=== PATIENT | male | born 1940 | race Caucasian/White ===

== ENCOUNTER → 2019-10-03 | Outpatient (CLI) | payer MEDICARE ==
[~2019-10-03] MED LIST: GADOTERATE 10 MMOL/20 ML SYR ONE
== END | disposition home or self-care (01) ==
LOC: RAD 16:54
PROVIDERS: ATTEND Psychiatry & Neurology Neurology
DX: I67.82 Cerebral ischemia (principal); I63.9 Cerebral infarction, unspecified; G31.89 Other specified degenerative diseases of nervous system; G93.89 Other specified disorders of brain
CPT/HCPCS: 70553; A9575

== ENCOUNTER 2019-11-08 14:35 | Emergency (ER) | payer MEDICARE ==
[~2019-11-08] VITALS: Ht 182.9 cm; Wt 82.4 kg
[2019-11-08 14:48] VITALS: BP 154/72
--- NOTE | 2019-11-08 15:06 | NUR ---
PT C/O SORE THROAT STARTING YESTERDAY AND FELT LIKE HAD A FEVER. PT CONNECTED TO MONITORING. CALL LIGHT IN REACH. MD AT BEDSIDE FOR ASSESSMENT.
[2019-11-08] MEDS ORDERED: IBUPROFEN 200 MG TABLET ONE (15:14)
[2019-11-08] MEDS ORDERED: IBUPROFEN 200 MG TABLET PO ONE (15:30)
--- NOTE | 2019-11-08 16:03 | NUR ---
ALL RESULTS ARE BACK AT THIS TIME. CHART UP FOR RECHECK.
== END 2019-11-08 16:41 | disposition home or self-care (01) ==
LOC: ED 16:09
DX: J02.8 Acute pharyngitis due to other specified organisms (principal); R51 Headache; B97.89 Other viral agents as the cause of diseases classified elsewhere; Z20.828 Contact with and (suspected) exposure to other viral communicable diseases
CPT/HCPCS: 87081; 87880; 99283; U0001